=== PATIENT | male | born 1960 | race Caucasian/White ===

== ENCOUNTER 2016-10-08 21:05 | Emergency (ER) | payer BC ==
[~2016-10-08] VITALS: Ht 177.8 cm; Wt 87.0 kg
[~2016-10-08 21:05] MED LIST: AZOR 10/40 M1 TABLET PO; BACTRIM,SEPT1 TABLET PO; BENADRYL25 MG PO; CLEOCIN300 MG PO; ENDOCET 5-3251 EACH PO; FLOMAX0.4 MG PO; JANUMET 50/11 TABLET PO; OMEPRAZOLE40 M1 PO; TRILIPIX135 MG PO; VIAGRA100 MG PO; ZETIA10 MG PO
[2016-10-08 23:05] LABS: HEMATOCRIT 42.1 % (38.0-50.0); MCH 30.5 PG (29.0-34.0); MCHC 33.5 G/DL (30.0-36.0); MCV 90.9 FL (86-99); MEAN PLAT.VOLUME 10.4 uM^3 (9.0-12.4); PLATELET COUNT 182 K/uL (156-360); RBC DIS.WIDTH-CV 14.5 % (11.8-14.6); RBC DIS.WIDTH-SD 48.3 % (39-53); RED BLOOD COUNT 4.63 M/uL (4.00-5.50); WHITE BLOOD COUNT 5.7 K/uL (4.1-10.2)
[2016-10-08 23:15] LABS: CHLORIDE 100 mEq/L (99-109); POTASSIUM 3.9 mEq/L (3.7-5.4)
[2016-10-08 23:18] LABS: GLUCOSE 126 mg/dL (70-99)
[2016-10-08 23:19] LABS: ANION GAP 10 MEQ/L (2-14)
[2016-10-08 23:20] LABS: TOTAL BILIRUBIN 0.7 mg/dL (0.0-1.0)
[2016-10-08 23:21] LABS: ALKALINE PHOSPHATASE 52 IU/L (3-129)
[2016-10-08 23:23] LABS: DIRECT BILIRUBIN 0.4 mg/dL (0.0-0.3); UREA NITROGEN (BUN) 24 mg/dL (9-23)
[2016-10-08 23:25] LABS: LIPASE 30 U/L (1.0-51.0)
[2016-10-08 23:26] LABS: ADD MIUA? NO; BILIRUBIN NEGATIVE; BLOOD NEGATIVE; COLOR YELLOW ((YELLOW)); GLUCOSE (STRIP) >=500; KETONES NEGATIVE; LEUKOCYTES NEGATIVE; NITRITE NEGATIVE; PROTEIN (STRIP) NEGATIVE; UCUL ADDED? NO; UROBILINOGEN 0.2 MG/DL (0.2-1.0)
[2016-10-08 23:27] LABS: GFR ESTIMATE (CALCULATED) 42 mL/min/; SODIUM 133 mEq/L (136-147)
[2016-10-08 23:31] LABS: INTERNAL CONTROL VALID? YES; MONOSPOT (MONONUCLEOSIS SEROL) NEGATIVE
[2016-10-08] MEDS ORDERED: LEVAQUIN750 MG PO (23:51)
[2016-10-08 23:58] VITALS: BP 129/79
[2016-10-09 10:45] LABS: LYME DISEASE SEROLOGY SCREEN NEGATIVE (NEGATIVE)
== END 2016-10-09 | disposition home or self-care (01) ==
LOC: EME 21:05
PROVIDERS: Emergency Medicine
DX: R50.9 Fever, unspecified (principal); E86.0 Dehydration; K21.9 Gastro-esophageal reflux disease without esophagitis; I10 Essential (primary) hypertension; E78.5 Hyperlipidemia, unspecified; Z87.442 Personal history of urinary calculi
CPT/HCPCS: 71020; 80048; 80076; 81003; 83605; 83690; 85027; 86308; 86618; 86757 90; 87040; 87086; 99281; 99284

== ENCOUNTER 2017-09-19 14:44 | Emergency (ER) | payer BC ==
[~2017-09-19] VITALS: Ht 177.8 cm; Wt 88.3 kg
[~2017-09-19 14:44] MED LIST changes: +LEVAQUIN750 MG PO
[2017-09-19 15:48] LABS: HEMATOCRIT 35.9 % (38.0-50.0); HEMOGLOBIN 12.6 G/DL (12.5-16.6); MCH 32.2 PG (29.0-34.0); MCHC 35.1 G/DL (30.0-36.0); MCV 91.8 FL (86-99); PLATELET COUNT 181 K/uL (156-360); RBC DIS.WIDTH-CV 13.9 % (11.8-14.6); RBC DIS.WIDTH-SD 46.5 % (39-53); RED BLOOD COUNT 3.91 M/uL (4.00-5.50); WHITE BLOOD COUNT 7.9 K/uL (4.1-10.2)
[2017-09-19 15:56] LABS: CHLORIDE 103 mEq/L (99-109); POTASSIUM 3.8 mEq/L (3.7-5.4); SODIUM 134 mEq/L (136-147)
[2017-09-19 15:58] LABS: GLUCOSE 183 mg/dL (70-99)
[2017-09-19 16:02] LABS: CREATININE 1.6 mg/dL (0.6-1.3); GFR ESTIMATE (CALCULATED) 47 mL/min/ (58.99-99999)
[2017-09-19 16:03] LABS: UREA NITROGEN (BUN) 24 mg/dL (9-23)
[2017-09-19 16:21] LABS: APPEARANCE CLEAR ((CLEAR)); BILIRUBIN NEGATIVE; BLOOD NEGATIVE; COLOR YELLOW ((YELLOW)); GLUCOSE (STRIP) NEGATIVE; KETONES NEGATIVE; LEUKOCYTES MODERATE; NITRITE NEGATIVE; PROTEIN (STRIP) NEGATIVE; SPECIFIC GRAVITY 1.024 (1.000-1.030)
[2017-09-19 16:30] LABS: BACTERIA NONE SEEN /HPF; EPITHELIAL CELLS NONE SEEN /HPF; MUCUS TRACE /LPF; RED BLOOD CELLS 0-5 /HPF (0-5)
[2017-09-19 18:11] VITALS: BP 123/66
== END 2017-09-19 18:12 | disposition home or self-care (01) ==
LOC: EME 14:44
PROVIDERS: Nurse Practitioner Family
DX: E86.0 Dehydration (principal); R50.9 Fever, unspecified; I10 Essential (primary) hypertension; E78.5 Hyperlipidemia, unspecified; K21.9 Gastro-esophageal reflux disease without esophagitis; J30.2 Other seasonal allergic rhinitis; L40.9 Psoriasis, unspecified; G43.909 Migraine, unspecified, not intractable, without status migrainosus; F41.9 Anxiety disorder, unspecified; Z87.442 Personal history of urinary calculi; Z88.0 Allergy status to penicillin; Z88.5 Allergy status to narcotic agent; Z88.8 Allergy status to other drugs, medicaments and biological substances
CPT/HCPCS: 71046; 80048; 81003; 83605; 85027; 87040; 99281; 99284; J2405; J7030